=== PATIENT | male | born 1970 | race Caucasian/White ===

== ENCOUNTER → 2018-01-07 | Outpatient (CLI) | payer OTHER ==
[~2018-01-07] MED LIST: CIPROFLOXACIN500 MG PO; DARVOCET N 1001 TAB PO; FLAGYL500 MG PO
[2018-01-07 15:01] LABS: HEMATOCRIT 47.2 % (42.0-52.0); HEMOGLOBIN 16.4 g/dl (14.0-18.0); MEAN CELL VOLUME 95.5 fl (80.0-94.0); MEAN CORPUSCULAR HGB 33.2 pg (27.0-31.0); MEAN CORPUSCULAR HGB CONC 34.7 g/dl (33.0-37.0); MEAN PLATELET VOLUME 9.5 fl (9.6-12.3); RED BLOOD COUNT 4.94 10*6/uL (4.50-5.90); RED CELL DISTRI WIDTH 13.2 % (0-14.5); WHITE BLOOD COUNT 4.7 10*3/uL (4.8-10.8)
[2018-01-07 15:18] LABS: ALBUMIN 3.8 gm/dl (3.1-4.5); ALKALINE PHOSPHATASE 115 U/L (45-117); BUN 11 mg/dl (7-24); CHLORIDE 103 mmol/L (98-107); CHOLESTEROL 218 mg/dL (<200); CREATININE 0.94 mg/dL (0.70-1.30); HDL CHOLESTEROL 35 mg/dl (40-60); LDL CHOLESTEROL 138 mg/dL (9-159); POTASSIUM 4.2 mmol/L (3.5-5.1); SGOT/AST 155 IU/L (3-35); SGPT/ALT 137 U/L (12-78); SODIUM 137 mmol/L (136-145); TOTAL PROTEIN 7.7 gm/dL (6.4-8.2); TRIGLYCERIDES 223 mg/dl (<150); VLDL CHOLESTEROL 45 mg/dL (6-40)
[2018-01-07 15:19] LABS: FREE T4 1.21 ng/dl (0.76-1.46)
[2018-01-07 15:24] LABS: THYROID STIM HORMONE (HS) 0.143 uIU/ml (0.358-4.75)
== END ==
LOC: LAB 14:37
PROVIDERS: Family Medicine
DX: E78.00 Pure hypercholesterolemia, unspecified (principal); I25.10 Atherosclerotic heart disease of native coronary artery without angina pectoris; E55.9 Vitamin D deficiency, unspecified; K58.9 Irritable bowel syndrome, unspecified

== ENCOUNTER → 2018-05-19 | Outpatient (CLI) | payer OTHER ==
[~2018-05-19] MED LIST changes: +LISINOPRIL40 MG PO; +MULTIVITAMINS1 EAC5 PO; +Percocet 325 MG1 TAB PO; +SYNTHROID,LEV175 MCG PO; +ZOLOFT100 MG PO
== END | disposition home or self-care (01) ==
LOC: CT 05-18 09:00
DX: R10.84 Generalized abdominal pain (principal); R11.2 Nausea with vomiting, unspecified; K42.9 Umbilical hernia without obstruction or gangrene

== ENCOUNTER → 2018-05-26 | Day surgery (SDC) | payer OTHER ==
[2018-05-24 13:50] VITALS: BP 122/84
[2018-05-24 14:20] LABS: BASO % 0.8 % (0.0-1.0); EOS # 0.2 10*3/uL (0.0-0.4); EOS % 2.9 % (1.0-4.0); HEMATOCRIT 46.6 % (42.0-52.0); HEMOGLOBIN 16.5 g/dl (14.0-18.0); MEAN CELL VOLUME 92.1 fl (80.0-94.0); MEAN CORPUSCULAR HGB 32.6 pg (27.0-31.0); MEAN CORPUSCULAR HGB CONC 35.4 g/dl (33.0-37.0); MEAN PLATELET VOLUME 8.4 fl (9.6-12.3); MONO # 0.3 10*3/uL (0.1-1.0); MONO % 5.4 % (3.0-9.0); NEUT # 3.7 10*3/uL (2.3-7.9); NEUT % 71.3 % (47.0-73.0); PLATELET COUNT AUTOMATED 169 10*3/uL (130-400); RED BLOOD COUNT 5.06 10*6/uL (4.50-5.90); RED CELL DISTRI WIDTH 12.1 % (0-14.5); WHITE BLOOD COUNT 5.2 10*3/uL (4.8-10.8)
[2018-05-24 14:29] LABS: ACT PARTIAL THROMBO TIME 25.1 SECONDS (20.8-31.5); INTERNATIONAL NORM RATIO 1.1 (2.0-3.5)
[2018-05-24 14:32] LABS: BUN 11 mg/dl (7-24); CHLORIDE 99 mmol/L (98-107); CREATININE 0.96 mg/dL (0.70-1.30); POTASSIUM 4.1 mmol/L (3.5-5.1); SODIUM 134 mmol/L (136-145)
[~2018-05-26] VITALS: Ht 182.8 cm; Wt 113.4 kg
[2018-05-26] VITALS (8 sets, daily range): BP systolic 99–135; BP diastolic 30–80
--- NOTE | ~2018-05-26 | O ---
[place], [place] OPERATIVE NOTE NAME: [facility] #: [id number] UNIT #: [id number] ROOM: DOCTOR: JABIER OLIVO MD BIRTHDATE: [birth year] DOS: 05/26/2018 PREOPERATIVE DIAGNOSIS: Supraumbilical ventral hernia. POSTOPERATIVE DIAGNOSIS: Supraumbilical ventral hernia. PROCEDURE: Repair of supraumbilical ventral hernia. SURGEON: Jabier Olivo M.D. LOW PRESSURE BOILER TENDER: FANNY. ANESTHESIA: General with endotracheal intubation. INDICATIONS: This is a 47-year-old male who comes in with a symptomatic supraumbilical ventral hernia. The procedure and its complications were explained to the patient in detail preoperatively. Complications that were discussed included, but were not limited to bleeding, infection, hematoma/seroma/abscess formation, recurrence and prolonged pain. He agreed to proceed. DESCRIPTION OF PROCEDURE: After identifying the patient, the patient was brought to the operating suite and laid in the supine position. After induction of general anesthesia, the parts were painted and draped in the usual sterile fashion. Time-out procedure was called. An incision was made above the umbilicus in a transverse fashion right upper where the hernia was located. The skin and the subcutaneous tissue were incised. The hernial sac was dissected away from the rest of the surrounding subcutaneous tissue with the help of electrocautery. 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 A portion of the omentum, which was attached to the sac was excised and sent for histopathological diagnosis. The remaining part of the omentum was ligated with the help of 0 Vicryl and was allowed to retract back into the peritoneal cavity. The hernia was located right above the area of the mesh that was placed from a previous umbilical hernia repair a few years ago. The size of this defect was 0.5 cm. It was decided to proceed with a primary repair. This was performed with the help of 0 PDS in a transverse [id number] interrupted sutures. Thereafter, hemostasis was achieved and the subcutaneous tissue was irrigated and approximated with the help of 3-0 Vicryl in a running fashion and the skin edges approximated with the help of 4-0 Vicryl in a subcuticular running fashion after the edges were infiltrated with 1% plain lidocaine. A dressing was placed. The patient tolerated the procedure well. There were no complications. He was extubated uneventfully and brought back to the recovery in stable fashion. Dr. Jabier Olivo, the attending surgeon, was present throughout the operating case. [place], [place] OPERATIVE NOTE NAME: [facility]ER[facility] UNIT #: [id number] ROOM: DOCTOR: JABIER OLIVO MD BIRTHDATE: [birth year] Jabier Olivo MD CM:OPRECORD:OPERATIVE NOTE [id number] JABIER OLIVO MD 05/26/18 1053 interface
== END | disposition home or self-care (01) ==
LOC: SDC 05-24 13:15
PROVIDERS: Surgery
DX: K43.9 Ventral hernia without obstruction or gangrene (principal); I10 Essential (primary) hypertension; K21.9 Gastro-esophageal reflux disease without esophagitis; E07.9 Disorder of thyroid, unspecified; F32.9 Major depressive disorder, single episode, unspecified; Z90.49 Acquired absence of other specified parts of digestive tract; Z98.890 Other specified postprocedural states

== ENCOUNTER → 2018-06-19 | Outpatient (CLI) | payer OTHER | END | disposition home or self-care (01) | LOC: US 13:47 | DX: K76.0 Fatty (change of) liver, not elsewhere classified (principal); K82.4 Cholesterolosis of gallbladder ==

== ENCOUNTER → 2018-06-30 | Outpatient (CLI) | payer OTHER | END | disposition home or self-care (01) | LOC: NM 06:59 | DX: R93.2 Abnormal findings on diagnostic imaging of liver and biliary tract (principal); R11.10 Vomiting, unspecified; R10.11 Right upper quadrant pain; I10 Essential (primary) hypertension; K21.9 Gastro-esophageal reflux disease without esophagitis; Z90.49 Acquired absence of other specified parts of digestive tract ==

== ENCOUNTER → 2018-07-07 | Day surgery (SDC) | payer OTHER ==
[2018-07-07] VITALS (12 sets, daily range): BP systolic 89–136; BP diastolic 45–93
[~2018-07-07] VITALS: Ht 182.8 cm; Wt 113.4 kg
[~2018-07-07] MED LIST changes: +NORCO 5-325 TA1 EACH PO; +ZOFRAN4 MG PO
--- NOTE | ~2018-07-07 | O ---
[place], [place] OPERATIVE NOTE NAME: [facility] #: [id number] UNIT #: [id number] ROOM: DOCTOR: JABIER OLIVO MD BIRTHDATE: [birth year] DOS: 07/07/2018 PREOPERATIVE DIAGNOSIS: Biliary dyskinesia. POSTOPERATIVE DIAGNOSIS: Biliary dyskinesia. PROCEDURE: Laparoscopic cholecystectomy. SURGEON: Jabier Olivo MD SHIPPING AND RECEIVING MATERIAL HANDLER: FANNY. ANESTHESIA: General with endotracheal intubation. INDICATIONS: This is a 47-year-old gentleman with a history of biliary dyskinesia, who is here for the above-mentioned procedure. The procedure and its complications were explained to the patient in detail preoperatively. Complications that were discussed included but were not limited to bleeding, infection, hematoma/seroma/abscess formation, prolonged postoperative pain, damage to underlying vital structures, inadvertent injury to common bile duct, biloma formation and incisional hernia formation. He agreed to proceed. DESCRIPTION OF PROCEDURE: After identifying the patient, the patient was brought to the operating suite and laid in the supine position. After induction of general anesthesia, the parts were painted and draped in the usual sterile fashion. A time-out procedure was called. An incision was made in the vertical fashion in the region of the upper midline of the abdominal wall, superior to the previous supraumbilical incision that was made for hernia repair. The skin and the subcutaneous tissue were incised in the line of the incision. The fascia was incised vertically and 2 stay sutures with 0 Vicryl were taken on either side. The peritoneum was opened and a 12 mm Dayana port was introduced into the peritoneal cavity. A pneumoperitoneum was created. Under direct vision, an epigastric incision of 10 mm and two 5 mm incisions were made in the right upper quadrant and appropriate size ports were introduced. There was found to be hepatomegaly from fatty liver disease. The gallbladder was retracted superiorly and laterally. Because of the large volume of the liver, the gallbladder itself could not be mobilized in order to visualize the critical structures of the cystic duct and the cystic artery and therefore fundus first technique was utilized in order to better dissect the gallbladder. This was done with the help of electrocautery and the gallbladder was freed on all sides. Now, the gallbladder was retracted superiorly and laterally and the cystic duct and the cystic artery were carefully dissected until each of these structures were identified clearly and the critical view of safety was obtained as well as the triangle of Calot was clearly identified. The cystic duct was clipped 3 times as well as the cystic artery and both these structures were then cut between the first and the second clip. The gallbladder was then removed from the bed of the gallbladder. It was placed in an EndoCatch bag and sent for histopathological diagnosis. Hemostasis was achieved in the liver bed with the help of electrocautery, in addition hemostasis was achieved with the help of the [place], [place] OPERATIVE NOTE NAME: JENIFERCITLALIMARKO MARTINEZ UNIT #: [id number] ROOM: DOCTOR: JABIER OLIVO MD BIRTHDATE: [birth year] Destiny hemostatic powder that was placed in the liver bed. After hemostasis was confirmed, the right upper quadrant and the epigastric ports were removed. There was no bleeding seen. The umbilical port was also removed and the pneumoperitoneum was decompressed. The 2 stay sutures were tied together and an additional 0 Vicryl suture was taken in order to approximate the fascia in a [id number] fashion. The edges of the skin were approximated with 4-0 Vicryl after the edges were infiltrated with 1% plain lidocaine. Dressing was placed. The patient tolerated the procedure well and was extubated uneventfully and brought back to the recovery room in stable fashion. Blood loss was less than [address] Jabier Olivo, the attending surgeon, was present throughout the operating case. Jabier Olivo MD CM:OPRECORD:OPERATIVE NOTE [id number] JABIER OLIVO MD 07/07/18 1215 interface
== END | disposition home or self-care (01) ==
LOC: SDC 07-06 09:30
DX: K80.10 Calculus of gallbladder with chronic cholecystitis without obstruction (principal); I10 Essential (primary) hypertension; E66.09 Other obesity due to excess calories; E05.90 Thyrotoxicosis, unspecified without thyrotoxic crisis or storm; F41.9 Anxiety disorder, unspecified; Z90.49 Acquired absence of other specified parts of digestive tract; Z98.890 Other specified postprocedural states; Z79.899 Other long term (current) drug therapy; Z68.33 Body mass index [BMI] 33.0-33.9, adult

== ENCOUNTER → 2019-12-27 | Outpatient (CLI) | payer OTHER | END | disposition home or self-care (01) | LOC: RAD 13:35 | DX: M89.8X1 Other specified disorders of bone, shoulder (principal) ==

== ENCOUNTER → 2020-08-22 | Outpatient (CLI) | payer OTHER | END | disposition home or self-care (01) | LOC: COVID19 14:59 | PROVIDERS: ATTEND Internal Medicine | DX: Z20.822 Contact with and (suspected) exposure to COVID-19 (principal) ==

== ENCOUNTER 2020-12-31 11:33 | Inpatient (IN) | payer BC, OTHER ==
[~2020-12-31] VITALS: Ht 182.9 cm; Wt 127.0 kg
[2020-12-31 11:41] VITALS: BP 158/102
[2020-12-31 12:17] LABS: BASO % 0.5 % (0.0-1.0); EOS # 0.1 10*3/uL (0.0-0.4); HEMATOCRIT 49.1 % (42.0-52.0); LYMPH # 0.5 10*3/uL (1.3-4.4); LYMPH % 8.7 % (27.0-41.0); MEAN CELL VOLUME 89.3 fl (80.0-94.0); MEAN CORPUSCULAR HGB 30.4 pg (27.0-31.0); MEAN PLATELET VOLUME 9.1 fl (9.6-12.3); MONO # 0.4 10*3/uL (0.1-1.0); MONO % 6.5 % (3.0-9.0); NEUT # 4.9 10*3/uL (2.3-7.9); NEUT % 81.8 % (47.0-73.0); PLATELET COUNT AUTOMATED 165 10*3/uL (130-400); RED CELL DISTRI WIDTH 11.9 % (0-14.5)
[2020-12-31 12:33] LABS: ALBUMIN 4.1 gm/dl (3.1-4.5); ALKALINE PHOSPHATASE 104 U/L (45-117); BUN 8 mg/dl (7-24); CHLORIDE 98 mmol/L (98-107); CREATININE 0.86 mg/dL (0.70-1.30); LIPASE 58 U/L (73-393); POTASSIUM 4.2 mmol/L (3.5-5.1); SGOT/AST 76 IU/L (3-35); SGPT/ALT 142 U/L (12-78); SODIUM 132 mmol/L (136-145); TOTAL PROTEIN 8.3 gm/dL (6.4-8.2)
[2020-12-31 12:34] LABS: TROPONIN I < 0.015 ng/ml (<0.045)
[2020-12-31 14:10] VITALS: BP 138/77
[2020-12-31 14:25] LABS: BILIRUBIN Negative (Negative); BLOOD Negative (Negative); CLARITY Clear (Clear); COLOR Yellow (Yellow); GLUCOSE Negative (Negative); KETONE Negative (Negative); LEUKO ESTERASE Negative (Negative); NITRITE Negative (Negative); PH 6.5 (4.5-8.0); SPECIFIC GRAVITY >= 1.030 (1.001-1.030); UROBILINOGEN 0.2 E.U./dl (0.0-1.0)
[2020-12-31 14:40] VITALS: BP 112/71
[2020-12-31 14:52] LABS: COARSE GRANULAR CAST 0-2; HYALINE CAST 0-2; RBC 0-2 rbc/hpf (0-2); WBC 0-2 wbc/hpf (0-5)
[2020-12-31 15:45] VITALS: BP 135/82
[2020-12-31 16:00] VITALS: BP 141/85
[2020-12-31] MEDS ORDERED: NEXIUM20 M1 PO (16:32)
[2020-12-31 20:00] VITALS: BP 149/86
[2021-01-01] VITALS (7 sets, daily range): BP systolic 118–148; BP diastolic 65–98
[2021-01-01 06:29] LABS: ALBUMIN 3.4 gm/dl (3.1-4.5); BUN 7 mg/dl (7-24); CHLORIDE 103 mmol/L (98-107); POTASSIUM 3.8 mmol/L (3.5-5.1); SGOT/AST 82 IU/L (3-35); SGPT/ALT 135 U/L (12-78); SODIUM 133 mmol/L (136-145)
[2021-01-01 06:33] LABS: ALKALINE PHOSPHATASE 102 U/L (45-117); CHOLESTEROL 224 mg/dL (<200); CREATININE 0.89 mg/dL (0.70-1.30); LDL CHOLESTEROL 161 mg/dL (9-159); TOTAL PROTEIN 7.6 gm/dL (6.4-8.2); TRIGLYCERIDES 105 mg/dl (<150)
[2021-01-01 06:34] LABS: BASO % 0.2 % (0.0-1.0); EOS # 0.2 10*3/uL (0.0-0.4); EOS % 2.9 % (1.0-4.0); HEMATOCRIT 47.3 % (42.0-52.0); LYMPH # 0.7 10*3/uL (1.3-4.4); LYMPH % 13.2 % (27.0-41.0); MEAN CELL VOLUME 92.2 fl (80.0-94.0); MEAN CORPUSCULAR HGB 30.4 pg (27.0-31.0); MEAN PLATELET VOLUME 9.1 fl (9.6-12.3); MONO # 0.4 10*3/uL (0.1-1.0); MONO % 7.4 % (3.0-9.0); NEUT # 3.9 10*3/uL (2.3-7.9); NEUT % 75.7 % (47.0-73.0); PLATELET COUNT AUTOMATED 150 10*3/uL (130-400); RED BLOOD COUNT 5.13 10*6/uL (4.50-5.90); WHITE BLOOD COUNT 5.2 10*3/uL (4.8-10.8)
[2021-01-01 08:06] LABS: VITAMIN D, 25-HYDROXY 63.2 ng/mL (30-100)
[2021-01-01] MEDS ORDERED: LISINOPRIL40 MG PO (12:17)
[2021-01-01] MEDS ORDERED: ATORVASTATIN CA20 M1 PO (12:17)
[2021-01-01] MEDS ORDERED: Carafate1 GM PO (12:17)
== END 2021-01-01 13:06 | disposition home or self-care (01) | DRG 392 ==
LOC: ED 11:33 → 5E 13:33 → EDHOLD 13:33 → 5E 15:16
PROVIDERS: Emergency Medicine; Registered Nurse; ADMIT Internal Medicine; ATTEND Internal Medicine
PROC: 0DB68ZX Excision of Stomach, Via Natural or Artificial Opening Endoscopic, Diagnostic (ICD-10-PCS; principal; 2021-01-01)
PROC: 0DB78ZX Excision of Stomach, Pylorus, Via Natural or Artificial Opening Endoscopic, Diagnostic (ICD-10-PCS; 2021-01-01)
DX: K29.70 Gastritis, unspecified, without bleeding (principal); E87.1 Hypo-osmolality and hyponatremia; E80.6 Other disorders of bilirubin metabolism; R74.01 Elevation of levels of liver transaminase levels; I10 Essential (primary) hypertension; R73.9 Hyperglycemia, unspecified; E78.2 Mixed hyperlipidemia; F41.9 Anxiety disorder, unspecified; N28.1 Cyst of kidney, acquired; D35.00 Benign neoplasm of unspecified adrenal gland; K44.9 Diaphragmatic hernia without obstruction or gangrene; K31.7 Polyp of stomach and duodenum; E66.9 Obesity, unspecified; K76.0 Fatty (change of) liver, not elsewhere classified; R16.1 Splenomegaly, not elsewhere classified; Z90.49 Acquired absence of other specified parts of digestive tract; Z79.899 Other long term (current) drug therapy; Z68.38 Body mass index [BMI] 38.0-38.9, adult

== ENCOUNTER → 2021-01-08 | Outpatient (CLI) | payer BC, OTHER ==
[~2021-01-08] MED LIST changes: +ATORVASTATIN CA20 M1 PO; +Carafate1 GM PO; +NEXIUM20 M1 PO
== END | disposition home or self-care (01) ==
LOC: US 01-02 07:30
PROVIDERS: ATTEND Nurse Practitioner Primary Care
DX: K76.0 Fatty (change of) liver, not elsewhere classified (principal); R74.9 Abnormal serum enzyme level, unspecified; Z90.49 Acquired absence of other specified parts of digestive tract

== ENCOUNTER → 2024-03-27 | Outpatient (CLI) | payer OTHER ==
[2024-03-27 17:36] LABS: HEMATOCRIT 44.6 % (42.0-52.0); MEAN CELL VOLUME 91.2 fl (80.0-94.0); MEAN CORPUSCULAR HGB 32.1 pg (27.0-31.0); MEAN CORPUSCULAR HGB CONC 35.2 g/dl (33.0-37.0); MEAN PLATELET VOLUME 9.2 fl (9.6-12.3); RED BLOOD COUNT 4.89 10*6/uL (4.50-5.90); RED CELL DISTRI WIDTH 11.8 % (0-14.5); WHITE BLOOD COUNT 4.3 10*3/uL (4.8-10.8)
[2024-03-27 18:01] LABS: ALKALINE PHOSPHATASE 76 U/L (46-116); BUN 13 mg/dl (9-23); CHLORIDE 99 mmol/L (98-107); CHOLESTEROL 244 mg/dL (<200); LDL CHOLESTEROL 168 mg/dL (9-159); POTASSIUM 4.1 mmol/L (3.4-5.1); SGPT/ALT 81 U/L (5-49); TOTAL PROTEIN 7.4 gm/dL (6.0-8.0); TRIGLYCERIDES 165 mg/dl (<150)
== END | disposition home or self-care (01) ==
LOC: LAB 17:15
PROVIDERS: ATTEND Physician Assistant
DX: Z12.5 Encounter for screening for malignant neoplasm of prostate (principal); K29.70 Gastritis, unspecified, without bleeding; K42.9 Umbilical hernia without obstruction or gangrene; F90.0 Attention-deficit hyperactivity disorder, predominantly inattentive type; Z72.89 Other problems related to lifestyle